=== PATIENT | female | born 1980 | race Caucasian/White ===

== ENCOUNTER 2018-05-17 11:35 | Emergency (ER) | payer OTHER ==
--- NOTE | 2018-05-17 12:57 | EDPHY ---
H & P Stated Complaint: 3 days increasing luq abd pain/sensitive to touch nausea Time Seen by Provider: 05/17/18 12:56 - Personal History LMP (Females 10-55): 15-21 Days Ago Current Tetanus Diphtheria and Acellular Pertussis (TDAP): Yes - Medical/Surgical History Hx Asthma: No Hx Chronic Respiratory Disease: No Hx Diabetes: No Hx Cardiac Disease: No Hx Renal Disease: No Hx Cirrhosis: No Hx Alcoholism: No Hx HIV/AIDS: No Hx Splenectomy or Spleen Trauma: No Other PMH: . anxiety. depression. ectopic - Social History Smoking Status: Former smoker Constitutional: Initial Vital Signs Temperature (C) 36.7 C 05/17/18 11:39 Heart Rate 73 05/17/18 11:39 Respiratory Rate 18 05/17/18 11:39 Blood Pressure 144/92 H 05/17/18 11:39 O2 Sat (%) 97 05/17/18 11:39 O2 Delivery Mode Room Air Allergies/Adverse Reactions: clindamycin phosphate [From Ziana] Allergy (Intermediate, Verified 05/17/18 11: 38) Hives azithromycin [From Zithromax Z-Cristhian] Allergy (Mild, Verified 05/17/18 11:38) nausea/headache tretinoin [From Ziana] Allergy (Verified 05/17/18 11:38) Home Medications: Medication Instructions Recorded Amphet Asp and D/Amphet [Adderall 10 mg PO 05/02/16 10 MG (*)] Diazepam [Valium 5 MG (*)] 5 mg PO 05/02/16 buPROPion SR [Wellbutrin 150mg SR 150 mg PO 05/02/16 (*)] Christal 05/17/18 Medical Decision Making - Diagnostics Imaging Results: Imaging Impressions Abdomen Ultrasound 05/17/18 13:29 Impression: Fatty liver. Otherwise, unremarkable ultrasound. Findings and recommendations discussed with Giorgio Obrien MD at 1445 hour, 05/17/2018. Imaging: Discussed imaging studies w/ on call pharmacy technician Radiologist ED Course/Re-evaluation: CHIEF COMPLAINT: Left abdominal/flank pain HISTORY OF PRESENT ILLNESS: This is a 38 y/o female with a history of ectopic and acid reflux complaining of acute onset left-sided abdominal pain Wednes night, 2 days ago. She initially attributed her symptoms to indigestion, but it did not improve overnight. She describes the pain as constant, non-radiating, and associated with fullness and nausea. Movement exacerbates symptoms. She's had "mysterious" left-sided abdominal pain previously, but this pain feels more intense. She has also been urinating more frequently, but denies hematuria, dysuria. No constipation, blood in stool, skin rashes, fever. Her LNMP was on April 30 and she is sexually active. Gallbladder disease in female relatives. REVIEW OF SYSTEMS: A comprehensive 10 system review of systems is otherwise negative aside from elements mentioned in the history of present illness and medical decision making. PHYSICAL EXAM: HR, BP, O2 Sat, RR. Temp noted General Appearance: Alert, well hydrated, appropriate, and non-toxic appearing. Head: Atraumatic without scalp tenderness or obvious injury Eyes: Pupils equal, round, reactive to light and accommodation, EOMI, no trauma , no injection. Nose: Atraumatic, no rhinorrhea, clear. Throat: Mucus membranes moist. Neck: Supple, nontender, no lymphadenopathy. Respiratory: No retractions, no distress, no wheezes, and no accessory muscle use. Lungs are clear to auscultation bilaterally. Cardiovascular: Regular rate and rhythm, no murmurs, rubs, or gallops. Good capillary refill all extremities. Gastrointestinal: Abdomen is soft, RUQ tenderness, non-distended, no masses, no rebound, no guarding, no peritoneal signs. Musculoskeletal: Normal active ROM of all extremities, atraumatic. Mild tenderness to left lateral 11th and 12th ribs. Neurological: Alert, appropriate, and interactive. The patient has non-focal cranial nerves, motor, sensory, and cerebellar exam. Skin: No rashes, good turgor, no nodules on palpation. Past medical history: Anxiety, depression, ectopic 2016 - spontaneous miscarriage after IUD removal, acid reflux Past surgical history: Denies Family history: Gallbladder disease, cholecystectomies in mother and sister at similar ages. Social history: Daily marijuana. Lives in [place]. Employed. DIAGNOSTICS/PROCEDURES/CRITICAL CARE TIME: RUQ US: negative DIFFERENTIAL DIAGNOSIS: The differential diagnosis for the patient's abdominal pain included but was not limited to ovarian cyst, pelvic inflammatory disease, ovarian torsion, urinary tract infection, ectopic , cholecystitis, and appendicitis. MEDICAL DECISION MAKING: This is a 38 y/o female with a history of an ectopic who presents complaining of left-sided abdominal/flank pain, but has RUQ tenderness on exam. She has some reproducible tenderness along the left lateral 11th and 12th ribs. Due to this and history of gallbladder disease in 1st degree female relatives, presentation is more suspicious for gallbladder etiology. Will also evaluate for urinary cause. Plan for IV, labs, UA, RUQ ultrasound. 1L IV NS ordered. Labs are completely normal. US is unremarkable. Due to her flank pain appearing musculoskeletal in nature, normal labs, and a normal gallbladder US, I do not recommend radiation exposure for abdominal CT at this time. She agrees with this recommendation. Plan for discharge home with standard care and follow up instructions Return precautions discussed. - Data Points Laboratory Results: Laboratory Results 05/17/18 12:15 05/17/18 12:15 05/17/18 05/17/18 05/17/18 12:15 12:15 12:15 WBC 8.12 10^3/uL 10^3/uL (3.80-9.50) RBC 5.12 10^6/uL 10^6/uL (4.18-5.33) Hgb 14.7 g/dL g/dL (12.6-16.3) Hct 45.2 % % (38.0-47.0) MCV 88.3 fL fL (81.5-99.8) MCH 28.7 pg pg (27.9-34.1) MCHC 32.5 g/dL g/dL (32.4-36.7) RDW 13.2 % % (11.5-15.2) Plt Count 316 10^3/uL 10^3/uL (150-400) MPV 11.5 fL fL (8.7-11.7) Neut % (Auto) 54.9 % % (39.3-74.2) Lymph % (Auto) 35.7 % % (15.0-45.0) [place] % (Auto) 7.1 % % (4.5-13.0) Eos % (Auto) 1.1 % % (0.6-7.6) Baso % (Auto) 0.6 % % (0.3-1.7) Nucleat RBC Rel Count 0.0 % % (0.0-0.2) Absolute Neuts (auto) 4.45 10^3/uL 10^3/uL (1.70-6.50) Absolute Lymphs (auto) 2.90 10^3/uL 10^3/uL (1.00-3.00) Absolute Monos (auto) 0.58 10^3/uL 10^3/uL (0.30-0.80) Absolute Eos (auto) 0.09 10^3/uL 10^3/uL (0.03-0.40) Absolute Basos (auto) 0.05 10^3/uL 10^3/uL (0.02-0.10) Absolute Nucleated RBC 0.00 10^3/uL 10^3/uL (0-0.01) Immature Gran % 0.6 % % (0.0-1.1) Immature Gran # 0.05 10^3/uL 10^3/uL (0.00-0.10) Sodium 139 mEq/L mEq/L (135-145) Potassium 4.0 mEq/L mEq/L (3.5-5.2) Chloride 105 mEq/L mEq/L (97-110) Carbon Dioxide 25 mEq/l mEq/l (22-31) Anion Gap 9 mEq/L mEq/L (6-14) BUN 12 mg/dL mg/dL (7-23) Creatinine 0.8 mg/dL mg/dL (0.6-1.0) Estimated GFR > 60 Glucose 87 mg/dL mg/dL (70-100) Calcium 10.0 mg/dL mg/dL (8.5-10.4) Total Bilirubin 0.4 mg/dL mg/dL (0.1-1.4) Conjugated Bilirubin 0.4 mg/dL mg/dL (0.0-0.5) Unconjugated Bilirubin 0.0 mg/dL mg/dL (0.0-1.1) AST 23 IU/L IU/L (14-46) ALT 33 IU/L IU/L (9-52) Alkaline Phosphatase 76 IU/L IU/L (38-126) Total Protein 7.7 g/dL g/dL (6.3-8.2) Albumin 4.6 g/dL g/dL (3.5-5.0) Lipase 60 IU/L IU/L (23-300) Beta HCG, Qual NEGATIVE Medications Given: Discontinued Medications Sodium Chloride (Ns) 1,000 mls @ 0 mls/hr IV ONCE ONE; Wide Open PRN Reason: Protocol Stop: 05/17/18 13:23 Last Admin: 05/17/18 13:38 Dose: 1,000 mls Departure - Departure Disposition: Home, Routine, Self-Care Clinical Impression: Musculoskeletal pain Abdominal pain Qualifiers: Abdominal location: right upper quadrant Qualified Code(s): R10.11 - Right upper quadrant pain Condition: Good Instructions: Abdominal Pain (ED) Additional Instructions: Follow up with your primary care provider for unimproved symptoms over the next 2-3 days. Return to the ED for any worsening of condition. Referrals: Jacqueline Arguello DO [Doctor of Osteopathy] - As per Instructions Report Scribed for: Giorgio Obrien Report Scribed by: Clarisse Cardenas Date of Report: 05/17/18 Time of Report: 13:17
[2018-05-17] MEDS ORDERED: NS 1,000 ML IV ONE (13:22)
[2018-05-17 13:37] LABS: PLATELET COUNT 316 10^3/uL (150-400)
[2018-05-17 15:02] VITALS: BP 118/85
== END 2018-05-17 15:01 | disposition home or self-care (01) ==
DX: R10.11 Right upper quadrant pain (principal); E86.9 Volume depletion, unspecified; F41.8 Other specified anxiety disorders

== ENCOUNTER → 2018-07-26 | Outpatient (CLI) | payer OTHER | LOC: FIMAGING 07:46 | PROVIDERS: ATTEND Family Medicine | DX: R51 Headache (principal) ==